=== PATIENT | male | born 1990 | race African-American/Black ===

== ENCOUNTER → 2018-10-15 | Outpatient (CLI) | payer OTHER | END | disposition home or self-care (01) | LOC: HKI 14:56 | DX: S83.207D Unspecified tear of unspecified meniscus, current injury, left knee, subsequent encounter (principal); X58.XXXD Exposure to other specified factors, subsequent encounter; M95.8 Other specified acquired deformities of musculoskeletal system | CPT/HCPCS: Z7500 ==